=== PATIENT | male | born 1985 | race Caucasian/White ===

== ENCOUNTER 2018-05-11 20:20 | Emergency (ER) | payer MEDICAID ==
[~2018-05-11] VITALS: Ht 180.3 cm; Wt 99.8 kg
[2018-05-11 20:24] VITALS: BP 145/88; Ht 180.3 cm; Wt 99.8 kg
[2018-05-12] MEDS ORDERED: TORADOL10 MG PO (00:42)
== END 2018-05-12 01:31 | disposition home or self-care (01) ==
LOC: D.ER 20:20
DX: M54.2 Cervicalgia (principal); S40.022A Contusion of left upper arm, initial encounter; V43.52XA Car driver injured in collision with other type car in traffic accident, initial encounter; Y93.89 Activity, other specified; Y92.410 Unspecified street and highway as the place of occurrence of the external cause; R51 Headache